=== PATIENT | male | born 1980 | race Two or more races ===

== ENCOUNTER 2020-10-16 20:02 | Emergency (ER) | payer OTHER ==
[~2020-10-16] VITALS: Ht 182.9 cm; Wt 104.3 kg
[2020-10-17] MEDS ORDERED: ZOFRAN8 MG PO (02:57)
[2020-10-17] MEDS ORDERED: INTESTINEX680 M1 PO (02:57)
[2020-10-17] MEDS ORDERED: LEVSIN/SL0.125 MG SL (02:57)
[2020-10-17] MEDS ORDERED: FLAGYL500MG PO (02:57)
[2020-10-17] MEDS ORDERED: CIPRO500 MG PO (02:57)
== END 2020-10-17 06:21 ==
LOC: ER 20:02
DX: Z03.818 Encounter for observation for suspected exposure to other biological agents ruled out (principal); K57.32 Diverticulitis of large intestine without perforation or abscess without bleeding
CPT/HCPCS: 74177; Q9965